=== PATIENT | male | born 1945 ===

== ENCOUNTER 2018-08-02 15:18 | Outpatient (REF) | payer MEDICARE, BC, SELFPAY ==
[2018-08-02 20:47] LABS: ALT 40 U/L (12-78); Anion Gap 9.2 mmol/L (3-11); BUN 16 mg/dL (7-18); CO2 29.8 mmol/L (21.0-32.0); CREATININE 1.42 mg/dL (0.70-1.30); Calcium 9.7 mg/dL (8.5-10.1); Chloride 101 mmol/L (98-107); Glucose 104 mg/dL (70-100); LDL CHOLESTEROL 122 mg/dL (<100); Potassium 4.1 mmol/L (3.5-5.1); Sodium 140 mmol/L (136-145); TSH 3.68 uIU/mL (0.358-3.74)
== END 2018-08-02 15:38 ==
LOC: NCHCN 15:18
PROVIDERS: PCP Internal Medicine; Visit Provider Internal Medicine
DX: L40.9 Psoriasis, unspecified (principal); E11.9 Type 2 diabetes mellitus without complications; I10 Essential (primary) hypertension
CPT/HCPCS: 80048; 83721; 84443; 84460

== ENCOUNTER 2021-04-17 11:15 | Outpatient (REF) | payer MEDICARE, BC, SELFPAY ==
[2021-04-17 20:26] LABS: Anion Gap 9.7 mmol/L (3-11); BUN 23 mg/dL (7-18); CO2 27.3 mmol/L (21.0-32.0); CREATININE 1.7 mg/dL (0.70-1.30); Calcium 9.7 mg/dL (8.5-10.1); Chloride 102 mmol/L (98-107); Estimated GFR 39.28 (mL/min/1.73m2); Glucose 107 mg/dL (74-106); Potassium 3.5 mmol/L (3.5-5.1); Sodium 139 mmol/L (136-145)
[2021-04-18 14:28] LABS: LDL CHOLESTEROL 124 mg/dL (<100)
== END 2021-04-17 11:16 | disposition home or self-care (01) ==
LOC: NCHCN 11:15
PROVIDERS: PCP Internal Medicine; Visit Provider Internal Medicine
DX: Z00.00 Encounter for general adult medical examination without abnormal findings (principal); I10 Essential (primary) hypertension; E66.9 Obesity, unspecified; R73.09 Other abnormal glucose
CPT/HCPCS: 80048; 83721; 84443

== ENCOUNTER 2024-01-30 14:49 | Outpatient (REF) | payer MEDICARE, BC, SELFPAY ==
[2024-01-30 20:28] LABS: ALT 36 U/L (16-63); Anion Gap 6.6 mmol/L (3-11); BUN 21 mg/dL (7-18); CO2 28.4 mmol/L (21.0-32.0); CREATININE 1.4 mg/dL (0.70-1.30); Calcium 9.3 mg/dL (8.5-10.1); Chloride 104 mmol/L (98-107); Creatine Kinase 69 U/L (39-308); Estimated GFR 50.81 (mL/min/1.73m2); Glucose 94 mg/dL (74-106); Potassium 4.3 mmol/L (3.5-5.1); Sodium 139 mmol/L (136-145)
[2024-01-30 20:55] LABS: Calculated LDL 56 mg/dL (<100); Cholesterol 131 mg/dL (<200); HDL Cholesterol 50 mg/dL (40-60); Triglyceride 129 mg/dL (<150)
== END 2024-01-30 14:50 | disposition home or self-care (01) ==
LOC: NCHCN 14:49
PROVIDERS: PCP Internal Medicine; Visit Provider Internal Medicine
DX: E78.5 Hyperlipidemia, unspecified (principal)
CPT/HCPCS: 80048; 80061; 82550; 84460

== ENCOUNTER 2025-03-18 18:35 | Outpatient (REF) | payer MEDICARE, BC, SELFPAY ==
[2025-03-18 20:31] LABS: ALT 38 U/L (16-63); AST 35 U/L (15-37); Albumin 4.2 g/dL (3.4-5.0); Alkaline Phosphatase 60 U/L (46-116); Anion Gap 8.3 mmol/L (3-11); BUN 18 mg/dL (7-18); Bilirubin, Total 1.9 mg/dL (0.2-1.0); CO2 27.7 mmol/L (21.0-32.0); CREATININE 1.4 mg/dL (0.70-1.30); Calcium 9.4 mg/dL (8.5-10.1); Calculated LDL 66 mg/dL (<100); Chloride 104 mmol/L (98-107); Cholesterol 144 mg/dL (<200); Estimated GFR 50.49 (mL/min/1.73m2); Glucose 119 mg/dL (74-106); HDL Cholesterol 59 mg/dL (>or=40); Potassium 4.2 mmol/L (3.5-5.1); Sodium 140 mmol/L (136-145); Total Protein 7.6 g/dL (6.4-8.2); Triglyceride 99 mg/dL (<150)
== END 2025-03-18 18:36 | disposition home or self-care (01) ==
LOC: NCHCN 18:35
PROVIDERS: PCP Internal Medicine; Visit Provider Internal Medicine
DX: E78.2 Mixed hyperlipidemia (principal)
CPT/HCPCS: 80053; 80061